=== PATIENT | female | born 1985 | race Two or more races ===

== ENCOUNTER 2024-07-07 10:06 | Emergency (ER) | payer OTHER ==
[~2024-07-07] VITALS: Ht 160 cm; Wt 103.9 kg
[2024-07-07] MEDS ORDERED: KETOROLAC TROMETHAMINE 60 MG VIAL IM STA (11:59)
[2024-07-07] MEDS ORDERED: KETOROLAC TROMETHAMINE 60 MG VIAL IM ONE (12:28)
== END 2024-07-07 13:00 | disposition home or self-care (01) ==
LOC: ER 10:08
DX: M62.830 Muscle spasm of back (principal)

== ENCOUNTER 2025-05-24 19:17 | Inpatient (IN) | payer OTHER ==
[~2025-05-24] VITALS: Ht 160 cm; Wt 100.2 kg
[2025-05-24] MEDS ORDERED: ATORVASTATIN CALCIUM 40 MG TABLET PO SCH (19:40)
[2025-05-24] MEDS ORDERED: FAMOTIDINE/PF 20 MG in 0.9 % SODIUM CHLORIDE 8 ML IV PUSH SCH (19:41)
--- NOTE | 2025-05-24 19:42 | NUR ---
SE RECIBE PACIENTE DE UN TRANFER DEL [facility], LOS CUALES REFIEREN TRAER A PACIENTE POR SINTMOMAS DE STROKE. AL MOMENTO SE MIDEN S/V, SE REALIZA EKG Y SE UBICA CONECTADA A MONITOR CARDIACO.
[2025-05-24] MEDS ORDERED: GLIPIZIDE XL10 MG PO (19:43)
[2025-05-24] MEDS ORDERED: SYNTHROID50 MCG PO (19:43)
[2025-05-24] MEDS ORDERED: ATORVASTATIN CA10 MG PO (19:44)
[2025-05-24] MEDS ORDERED: ZESTRIL10 M1 PO (19:44)
[2025-05-24] MEDS ORDERED: 0.9 % SODIUM CHLORIDE 1,000 ML IV SCH (19:45)
[2025-05-24] MEDS ORDERED: ONDANSETRON HCL 4 MG in 0.9 % SODIUM CHLORIDE 50 ML IV PRN (19:45)
[2025-05-24] MEDS ORDERED: ASPIRIN 81 MG TAB.CHEW PO SCH (19:45)
[2025-05-24] MEDS ORDERED: ACETAMINOPHEN 500 MG GEL..CAP PO PRN (19:45)
[2025-05-24] MEDS ORDERED: INSULIN LISPRO 1,000 UNIT/10 ML UNITS SUBCUTANEO PRN (20:15)
[2025-05-24] MEDS ORDERED: DEXTROSE 50 % IN WATER 0.5 G/ML DISP.SYRIN IV PRN (20:15)
[2025-05-24 21:52] LABS: URINE APPEARANCE Cloudy; URINE BILIRRUBIN Negative (NEGATIVE); URINE BLOOD Negative; URINE COLOR Yellow; URINE GLUCOSE Negative (NEGATIVE); URINE KETONE Trace (NEGATIVE); URINE LEUKOCYTE Moderate; URINE NITRATE Negative; URINE PROTEIN Negative (NEGATIVE); URINE UROBILINOGEN 0.2 E.U./dl
[2025-05-24 21:54] LABS: BASO % 0.2 % (0.1-1.2); EOS # 0.04 (0.04-0.54); EOS % 0.3 % (0.7-7.0); LYMPH # 1.73 (1.18-3.74); LYMPH % 14.3 % (19.3-53.1); MEAN PLATELET VOLUME 9.20 fl (9.4-12.4); MONO # 0.51 (0.24-0.82); MONO % 4.2 % (4.7-12.5); NEUT # 9.81 (1.56-6.13); NEUT % 80.8 % (34.0-71.1); RED CELL DISTRIBUTION WIDTH 13.7 % (11.6-14.4)
[2025-05-24 21:55] LABS: URINE BACTERIA 2579.8 uL (0.0-1933); URINE EPITHELIAL CELLS 69.3 uL (0.0-38.8); URINE RBC 32.1 uL (0.0-20.8); URINE WBC 177.0 uL (0.0-23.2)
[2025-05-24 21:56] LABS: URINE CAST 0.14 uL (0.0-1.40)
[2025-05-24] MEDS ORDERED: FAMOTIDINE/PF 20 MG/2 ML VIAL ONE (21:57)
[2025-05-24] MEDS ORDERED: CEFTRIAXONE SODIUM 2,000 MG in 0.9 % SODIUM CHLORIDE 100 ML IV SCH (21:59)
[2025-05-24 22:08] LABS: D DIMER 0.4 MG/L
[2025-05-24] MEDS ORDERED: CEFTRIAXONE SODIUM 2,000 MG VIAL ONE (22:08)
[2025-05-24 22:09] LABS: INR 1.05
[2025-05-24 22:14] LABS: ALT/SGPT 25.0 U/L (12-78); AST/SGOT 13.0 U/L (15-37); BILIRUBIN TOTAL 0.9 mg/dL (0.3-1.2); BUN CREA RATIO 11.0 (7.0-25.0); CREATININE SERUM 0.85 mg/dL (0.55-1.02); GFR 73.7; GLOBULINA 4.1 G/DL (2.4-3.5); GLUCOSE FASTING 143.0 mg/dL (65-100); OSMOLALITY SERUM 282.0 MOSM/KG (275-295)
[2025-05-24 22:21] VITALS: BP 148/74
[2025-05-24 22:40] LABS: CHOL HDL RATIO 5.9 (0-5.0); HDL 33.0 mg/dl (40-60); LDL 106.0 mg/dl (0-130); TSH 2.65 uIU/mL (0.358-3.74); VLDL 55.0 (0-39)
[2025-05-24 23:33] LABS: COVID-19 AG NEGATIVE (NEGATIVE)
[2025-05-25 01:59] VITALS: BP 132/84; O2SAT 98
[2025-05-25] MEDS ORDERED: LEVOTHYROXINE SODIUM 50 MCG TABLET PO SCH (06:00)
[2025-05-25 08:06] VITALS: BP 144/84; O2SAT 98
[2025-05-25] MEDS ORDERED: ATORVASTATIN CALCIUM 40 MG TABLET PO SCH (09:00)
[2025-05-25] MEDS ORDERED: LISINOPRIL 10 MG TABLET PO SCH (09:00)
[2025-05-25] MEDS ORDERED: LISINOPRIL 10 MG TABLET PO STA (14:38)
[2025-05-25 14:39] VITALS: BP 158/104; O2SAT 98
[2025-05-25] MEDS ORDERED: ENALAPRILAT DIHYDRATE 1.25 MG/ML VIAL IV PRN (14:45)
[2025-05-25 17:46] VITALS: BP 157/104
[2025-05-25 20:00] VITALS: O2SAT 96
[2025-05-25] MEDS ORDERED: CEFTRIAXONE SODIUM 2,000 MG in 0.9 % SODIUM CHLORIDE 100 ML IV SCH (21:00)
[2025-05-25 21:13] VITALS: BP 150/80
[2025-05-26] VITALS (9 sets, daily range): BP systolic 128–152; BP diastolic 85–95; O2SAT 18–98
[2025-05-26 08:23] LABS: BASO % 0.2 % (0.1-1.2); EOS # 0.14 (0.04-0.54); EOS % 1.6 % (0.7-7.0); LYMPH # 1.72 (1.18-3.74); LYMPH % 19.9 % (19.3-53.1); MEAN PLATELET VOLUME 9.70 fl (9.4-12.4); MONO # 0.40 (0.24-0.82); MONO % 4.6 % (4.7-12.5); NEUT # 6.36 (1.56-6.13); NEUT % 73.5 % (34.0-71.1); RED CELL DISTRIBUTION WIDTH 13.5 % (11.6-14.4)
[2025-05-26 08:58] LABS: ALT/SGPT 20.0 U/L (12-78); AST/SGOT 14.0 U/L (15-37); BILIRUBIN TOTAL 0.7 mg/dL (0.3-1.2); BUN CREA RATIO 15.0 (7.0-25.0); CREATININE SERUM 0.72 mg/dL (0.55-1.02); GFR 89.26; GLOBULINA 3.5 G/DL (2.4-3.5); GLUCOSE FASTING 98.0 mg/dL (65-100); OSMOLALITY SERUM 279.0 MOSM/KG (275-295)
[2025-05-26] MEDS ORDERED: LISINOPRIL 20 MG TABLET PO SCH (09:00)
[2025-05-27 03:42] VITALS: BP 133/80; O2SAT 95
[2025-05-27 05:08] VITALS: O2SAT 90
[2025-05-27 07:17] LABS: URINE APPEARANCE Clear; URINE BILIRRUBIN Negative (NEGATIVE); URINE BLOOD Negative; URINE COLOR Yellow; URINE GLUCOSE Negative (NEGATIVE); URINE KETONE 15 (NEGATIVE); URINE LEUKOCYTE Negative; URINE NITRATE Negative; URINE PROTEIN Negative (NEGATIVE); URINE UROBILINOGEN 0.2 E.U./dl
[2025-05-27 07:19] LABS: URINE BACTERIA 7.1 uL (0.0-1933); URINE EPITHELIAL CELLS 11.4 uL (0.0-38.8); URINE RBC 5.2 uL (0.0-20.8); URINE WBC 3.2 uL (0.0-23.2)
[2025-05-27 07:35] LABS: URINE CAST 0.14 uL (0.0-1.40)
[2025-05-27] MEDS ORDERED: CLOPIDOGREL BISULFATE 75 MG TABLET PO SCH (09:00)
[2025-05-27 09:28] VITALS: O2SAT 94
[2025-05-27 09:41] VITALS: BP 123/78; O2SAT 96
[2025-05-27 12:26] LABS: COVID-19 AG NEGATIVE (NEGATIVE)
[2025-05-27 12:58] VITALS: O2SAT 96
== END 2025-05-27 15:28 | disposition home or self-care (01) | DRG 65 ==
LOC: ER 19:17 → SEC-K 20:19 → MEDJ 20:19 → SURH 23:26 → SEC-K 05-25 00:16 → MEDJ 05-25 14:04
PROVIDERS: General Practice; Internal Medicine Infectious Disease; ADMIT Internal Medicine; ATTEND Internal Medicine
PROC: BW38ZZZ Magnetic Resonance Imaging (MRI) of Head (ICD-10-PCS; principal; 2025-05-24)
PROC: BW28ZZZ Computerized Tomography (CT Scan) of Head (ICD-10-PCS; 2025-05-24)
PROC: B345ZZZ Ultrasonography of Bilateral Common Carotid Arteries (ICD-10-PCS; 2025-05-24)
PROC: B246ZZZ Ultrasonography of Right and Left Heart (ICD-10-PCS; 2025-05-24)
PROC: BW3FZZZ Magnetic Resonance Imaging (MRI) of Neck (ICD-10-PCS; 2025-05-25)
PROC: 4A12X4Z Monitoring of Cardiac Electrical Activity, External Approach (ICD-10-PCS; 2025-05-25)
DX: I63.541 Cerebral infarction due to unspecified occlusion or stenosis of right cerebellar artery (principal); N39.0 Urinary tract infection, site not specified; I10 Essential (primary) hypertension; E11.9 Type 2 diabetes mellitus without complications; M62.831 Muscle spasm of calf; Z79.4 Long term (current) use of insulin; E03.9 Hypothyroidism, unspecified
CPT/HCPCS: 70544; 70548